=== PATIENT | female | born 1935 | race Caucasian/White ===

== ENCOUNTER 2016-12-19 20:29 | Inpatient (IN) | payer OTHER ==
[~2016-12-19] VITALS: Ht 157.5 cm; Wt 112.5 kg
[2016-12-19] MEDS ORDERED: SODIUM CHLORIDE 0.9% 1,000 ML IVB ONE (20:42)
[2016-12-19 21:21] LABS: INR 0.98 (0.9-1.15); Partial Thromboplastin Time 24.8 sec (22.64-33.71); Prothrombin Time 10.6 sec (9.37-12.3)
[2016-12-19 21:22] LABS: Hematocrit 37.8 % (36.0-46.0); Hemoglobin 12.6 g/dL (12.2-16.2); Mean Corpuscular Hemoglobin 31.3 pg (28.0-32.0); Mean Corpuscular Hgb Conc. 33.2 g/dL (32.0-36.0); Mean Corpuscular Volume 94.4 fL (80.0-100.0); Mean Platelet Volume 8.9 fL (7.4-10.4); Platelet Count (auto) 207 10^3/uL (140-450); SUSPECT VIEW TRANSMISSION; White Blood Cell 20.5 10^3/uL (4.4-10.8)
[2016-12-19 21:29] LABS: Lactic Acid w/Reflex 2.1 mmol/L (0.4-2.0); Metamyelocytes % 0; Myelocytes % 0; Promyelocytes % 0; Reactive Lymphocytes 0
[2016-12-19 21:40] LABS: Albumin 3.6 g/dL (3.4-5.0); Alkaline Phosphatase 157 U/L (45-117); Anion Gap 13 (5-15); Aspartate Aminotransferase 33 U/L (15-37); BUN/Creatinine Ratio 21.3; Bilirubin, Total 0.4 mg/dL (0.2-1.0); Blood Urea Nitrogen 27 mg/dL (7-18); Calcium 8.9 mg/dL (8.5-10.1); Carbon Dioxide 24 mmol/L (21-32); Chloride 108 mmol/L (98-107); GFR African American 52 mL/min; GFR Non-African American 43 mL/min; Glucose 111 mg/dL (74-106); Magnesium 1.4 mg/dL (1.6-2.6); Potassium 3.5 mmol/L (3.5-5.1); Sodium 145 mmol/L (136-145); Total Protein 6.6 g/dL (6.4-8.2)
[2016-12-19] MEDS ORDERED: PIPERACILLIN-TAZOB 3.375GM 100 ML IV ONE (21:45)
[2016-12-19] MEDS ORDERED: ACETAMINOPHEN 325 MG TAB PO ONE (21:45)
[2016-12-19] MEDS ORDERED: SODIUM CHLORIDE 0.9% 1,000 ML IV ONE (21:45)
[2016-12-19] MEDS ORDERED: VANCOMYCIN 1GM/250ML D5W 250 ML IV ONE (21:45)
[2016-12-19 21:55] LABS: REFLEX LACTIC ACID YES OR NO YES
[2016-12-19 22:25] LABS: Platelet Estimate Adequate; RBC Morphology Normal
[2016-12-20] MEDS ORDERED: SOD CHL 0.45% 1,000 ML IV ONE ×2 (00:15→06:15)
[2016-12-20] MEDS ORDERED: MAGNESIUM SULFATE 1GM/100ML 100 ML IV ONE (00:15)
[2016-12-20] MEDS ORDERED: IBUPROFEN 400 MG TAB PO ONE (03:15)
[2016-12-20 04:11] LABS: Urine RBC None Seen /hpf (0 - 4)
[2016-12-20 04:14] LABS: BUN/Creatinine Ratio 21.9; Calcium 7.8 mg/dL (8.5-10.1); Potassium 3.3 mmol/L (3.5-5.1)
[2016-12-20 04:18] LABS: Urine Bilirubin Negative (Negative); Urine Blood Negative /uL (Negative); Urine Color Yellow (Yellow); Urine Glucose Normal (Normal); Urine Ketone Negative (Negative); Urine Nitrite Negative (Negative); Urine Urobilinogen Normal (Negative)
[2016-12-20 04:52] LABS: B-Type Natriuretic Peptide 275.08 pg/mL (0-100); Temperature: 21.7 C (20.0-25.0)
[2016-12-20] MEDS ORDERED: ENOXAPARIN SOD 40 MG/0.4 ML SYRINGE SC ONE (06:15)
[2016-12-20] MEDS ORDERED: POTASSIUM CHL 20MEQ/100ML 100 ML IV ONE (06:15)
[2016-12-20] MEDS ORDERED: MORPHINE SULF INJ 2 MG/ML SYRINGE 1ML IV PRN (06:15)
[2016-12-20] MEDS ORDERED: NITROGLYCERIN 0.4 MG SL TAB SL PRN (06:15)
[2016-12-20] MEDS ORDERED: VANCOMYCIN PER PHARMACY 0 MG IV SCH (06:15)
[2016-12-20 06:42] LABS: Hematocrit 33.4 % (36.0-46.0); Hemoglobin 10.8 g/dL (12.2-16.2); Mean Corpuscular Hemoglobin 31.1 pg (28.0-32.0); Mean Corpuscular Hgb Conc. 32.3 g/dL (32.0-36.0); Mean Corpuscular Volume 96.3 fL (80.0-100.0); Mean Platelet Volume 9.4 fL (7.4-10.4); Platelet Count (auto) 182 10^3/uL (140-450); SUSPECT VIEW TRANSMISSION; White Blood Cell 21.3 10^3/uL (4.4-10.8)
[2016-12-20 06:53] LABS: Metamyelocytes % 0; Myelocytes % 0; Promyelocytes % 0; Reactive Lymphocytes 0
[2016-12-20] MEDS ORDERED: VANCOMYCIN 1,250 MG in D5W 5% 250 ML IV ONE (09:00)
[2016-12-20 09:22] LABS: Platelet Estimate Adequate
[2016-12-20 09:24] LABS: Burr Cells FEW; Ovalocytes FEW; Tear Drop Cells FEW
[2016-12-20] MEDS: NYSTATIN TOPICAL CREAM 15GM TOP SCH (11:00)
[2016-12-20] MEDS ORDERED: ARTIFICIAL TEARS 15ml EACHEYE PRN (11:45)
[2016-12-20] MEDS: PIPERACILLIN-TAZOB 3.375GM 100 ML IV SCH ×2 (14:00→22:10)
[2016-12-20] MEDS: IBUPROFEN 400 MG TAB PO PRN (18:40)
[2016-12-20] MEDS ORDERED: ALL300T PO (19:14)
[2016-12-20] MEDS ORDERED: HYDR25TA4 PO (19:14)
[2016-12-20] MEDS ORDERED: ATOR10TA52 PO (19:14)
[2016-12-20] MEDS ORDERED: AMLO5TAB2 PO (19:14)
[2016-12-20] MEDS ORDERED: MELO-86 PO (19:14)
[2016-12-20] MEDS ORDERED: COLC1TAB3 PO (19:14)
[2016-12-20] MEDS ORDERED: CHOL20007 OR (19:14)
[2016-12-20] MEDS ORDERED: BENA20TA4 PO (19:14)
[2016-12-20 22:00] VITALS: BP 148/73
[2016-12-21] VITALS (7 sets, daily range): BP systolic 135–148; BP diastolic 63–86
[2016-12-21] MEDS: PIPERACILLIN-TAZOB 3.375GM 100 ML IV SCH ×3 (05:51→22:06)
[2016-12-21 06:38] LABS: Hematocrit 35.7 % (36.0-46.0); Hemoglobin 11.9 g/dL (12.2-16.2); Mean Corpuscular Hemoglobin 31.6 pg (28.0-32.0); Mean Corpuscular Hgb Conc. 33.3 g/dL (32.0-36.0); Mean Corpuscular Volume 95.1 fL (80.0-100.0); Platelet Count (auto) 137 10^3/uL (140-450); SUSPECT VIEW TRANSMISSION
[2016-12-21 06:49] LABS: Metamyelocytes % 0; Myelocytes % 0; Promyelocytes % 0; Reactive Lymphocytes 0
[2016-12-21 07:10] LABS: Albumin 2.7 g/dL (3.4-5.0); BUN/Creatinine Ratio 17.7; Calcium 8.3 mg/dL (8.5-10.1); Potassium 4.5 mmol/L (3.5-5.1)
[2016-12-21 07:12] LABS: Bilirubin, Total 0.6 mg/dL (0.2-1.0); Total Protein 5.8 g/dL (6.4-8.2)
[2016-12-21 07:20] LABS: Platelet Estimate Adequate; RBC Morphology Normal
[2016-12-21] MEDS: IBUPROFEN 400 MG TAB PO PRN (08:39)
[2016-12-21] MEDS: VANCOMYCIN 1,250 MG in D5W 5% 250 ML IV SCH (09:24)
[2016-12-21] MEDS: NYSTATIN TOPICAL CREAM 15GM TOP SCH (09:27)
[2016-12-21] MEDS ORDERED: LIDOCAINE 1% HCL (LOCAL ANESTH.) INJ 20ML MDV ID ONE (16:00)
[2016-12-21] MEDS: SODIUM CHLOR 0.9% PF (SALINE LOCK) 10ML VIAL IV SCH (22:06)
[2016-12-22 05:00] VITALS: BP 143/76
[2016-12-22] MEDS: PIPERACILLIN-TAZOB 3.375GM 100 ML IV SCH (06:27)
[2016-12-22] MEDS: IBUPROFEN 400 MG TAB PO PRN (06:28)
[2016-12-22 09:00] VITALS: BP 120/51
[2016-12-22] MEDS: NYSTATIN TOPICAL CREAM 15GM TOP SCH (09:56)
[2016-12-22] MEDS: SODIUM CHLOR 0.9% PF (SALINE LOCK) 10ML VIAL IV SCH (09:56)
[2016-12-22] MEDS: VANCOMYCIN 1,250 MG in D5W 5% 250 ML IV SCH (09:57)
[2016-12-22 10:28] LABS: Basophils # (auto) 0 uL; Basophils % (auto) 0.3 % (0.0-2.0); Eosinophils # (auto) 0.2 uL; Eosinophils % (auto) 1.6 % (0.0-7.0); Hematocrit 33.1 % (36.0-46.0); Lymphocytes # (auto) 0.9 uL; Lymphocytes % (auto) 8.4 % (10.0-50.0); Mean Corpuscular Hgb Conc. 33.1 g/dL (32.0-36.0); Mean Corpuscular Volume 93.6 fL (80.0-100.0); Mean Platelet Volume 8.6 fL (7.4-10.4); Monocytes # (auto) 0.5 uL; Monocytes % (auto) 4.6 % (0.0-12.0); Neutrophils # (auto) 9.3 uL; Neutrophils % (auto) 85.1 % (37.0-80.0); Platelet Count (auto) 134 10^3/uL (140-450); SUSPECT VIEW TRANSMISSION; White Blood Cell 10.9 10^3/uL (4.4-10.8)
== END 2016-12-22 13:08 | disposition home health service (06) | DRG 871 ==
LOC: EDBD 20:29 → ER 20:32 → TELE 20:33 → TELE-E-ADS 12-20 16:14 → TELE-WESTW 12-20 18:19 → WEST WING 12-21 22:53
PROVIDERS: ADMIT Internal Medicine; ATTEND Internal Medicine
PROC: 05HM33Z Insertion of Infusion Device into Right Internal Jugular Vein, Percutaneous Approach (ICD-10-PCS; principal; 2016-12-19)
DX: A41.9 Sepsis, unspecified organism (principal); I21.4 Non-ST elevation (NSTEMI) myocardial infarction; L03.115 Cellulitis of right lower limb; I44.7 Left bundle-branch block, unspecified; M10.9 Gout, unspecified; B37.9 Candidiasis, unspecified; I10 Essential (primary) hypertension; Z82.49 Family history of ischemic heart disease and other diseases of the circulatory system
CPT/HCPCS: 36415; 36569; 51702; 70450; 71010; 80048; 80053; 80202; 80307; 80320; 81001; 83036; 83605; 83735; 83880; 84484; 85007; 85025; 85027; 85610; 85730; 87040; 87077; 87086; 87186; 93005; 93306; 93971; 94761; 96361; 96365; 96366; 96367; 96368; J2543; J3480; J7060

== ENCOUNTER 2017-05-28 22:27 | Emergency (ER) | payer OTHER ==
[~2017-05-28] VITALS: Ht 152.4 cm; Wt 96.2 kg
[~2017-05-28 22:27] MED LIST: ALL300T PO; AMLO5TAB2 PO; ATOR10TA52 PO; BENA20TA14 PO; CHOL20007 OR; COLC1TAB3 PO; HYDR25TA4 PO; MELO15TA4 PO
[2017-05-29] MEDS ORDERED: SODIUM CHLORIDE 0.9% 1,000 ML IV ONE ×2 (00:09→01:45)
[2017-05-29] MEDS ORDERED: HYDROmorphone HCL 2 MG/ML VL IV ONE (00:15)
[2017-05-29] MEDS ORDERED: ONDANSETRON HCL 4 MG/2 ML VIAL IV ONE (00:15)
[2017-05-29] MEDS ORDERED: methylPREDNISolone SOD SUCC 125 MG/2 ML VL IV ONE (00:15)
[2017-05-29 00:46] LABS: Basophils # (auto) 0.1 uL; Basophils % (auto) 0.6 % (0.0-2.0); Eosinophils # (auto) 0.1 uL; Eosinophils % (auto) 0.4 % (0.0-7.0); Hematocrit 37.4 % (36.0-46.0); Hemoglobin 12.3 g/dL (12.2-16.2); Lymphocytes # (auto) 1.7 uL; Lymphocytes % (auto) 10.3 % (10.0-50.0); Mean Corpuscular Hemoglobin 31.6 pg (28.0-32.0); Mean Corpuscular Volume 95.9 fL (80.0-100.0); Monocytes # (auto) 1.1 uL; Monocytes % (auto) 6.7 % (0.0-12.0); Neutrophils # (auto) 13.2 uL; Platelet Count (auto) 239 10^3/uL (140-450); Red Cell Distribution Width 15.2 % (11.8-14.3); White Blood Cell 16.1 10^3/uL (4.4-10.8)
[2017-05-29 01:02] LABS: INR 0.93 (0.9-1.15); Partial Thromboplastin Time 28.7 sec (22.64-33.71); Prothrombin Time 10.1 sec (9.37-12.3)
[2017-05-29 01:16] LABS: Albumin 3.1 g/dL (3.4-5.0); BUN/Creatinine Ratio 37.1; Calcium 8.8 mg/dL (8.5-10.1); Potassium 3.9 mmol/L (3.5-5.1)
[2017-05-29 01:18] LABS: Bilirubin, Total 0.3 mg/dL (0.2-1.0); Total Protein 7.1 g/dL (6.4-8.2)
[2017-05-29 02:13] VITALS: BP 124/78
== END 2017-05-29 02:26 | disposition home or self-care (01) ==
LOC: EDBD 22:27 → ER 22:36
DX: G83.4 Cauda equina syndrome (principal); N17.9 Acute kidney failure, unspecified; I10 Essential (primary) hypertension; Z79.899 Other long term (current) drug therapy
CPT/HCPCS: 36415; 71010; 72128; 72131; 80053; 85025; 85610; 85730; 93005; 96361; 96374; 96375; 99285; J1170; J2405; J2930